=== PATIENT | female | born 1995 | race African-American/Black ===

== ENCOUNTER 2021-09-20 00:14 | Emergency (ER) | payer SELFPAY ==
[~2021-09-20] VITALS: Ht 162.6 cm; Wt 63.0 kg
[2021-09-20 00:42] VITALS: BP 116/72
== END 2021-09-20 01:35 | disposition home or self-care (01) ==
LOC: ER 00:14
DX: Z48.01 Encounter for change or removal of surgical wound dressing (principal); Z88.0 Allergy status to penicillin
CPT/HCPCS: 99281

== ENCOUNTER 2022-06-05 11:14 | Emergency (ER) | payer MEDICAID ==
[~2022-06-05] VITALS: Ht 162.6 cm; Wt 68.0 kg
[2022-06-05] MEDS ORDERED: ACETAMINOPHEN 325MG TABLET PO ONE (12:30)
[2022-06-05] MEDS ORDERED: IBUP-2028 MT (15:06)
[2022-06-05 15:30] VITALS: BP 112/78
[2022-06-05] MEDS ORDERED: ACETAMINOPHEN 325MG TABLET PO NR (15:30)
== END 2022-06-05 15:30 ==
LOC: ER 12:16
DX: M54.9 Dorsalgia, unspecified (principal); M54.2 Cervicalgia; Z88.0 Allergy status to penicillin; V49.9XXA Car occupant (driver) (passenger) injured in unspecified traffic accident, initial encounter; Y93.89 Activity, other specified; Y92.89 Other specified places as the place of occurrence of the external cause; Y99.8 Other external cause status
CPT/HCPCS: 99282